=== PATIENT | female | born 2005 | race Caucasian/White ===

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

== ENCOUNTER → 2023-05-23 | Outpatient (CLI) | payer OTHER ==
--- NOTE | 2023-05-23 08:34 | US ---
EXAMINATION TYPE: US gallbladder DATE OF EXAM: 05/23/2023 COMPARISON: NONE CLINICAL INDICATION: Female, 18 years old with history of R10.84 GEN ABDOMINAL PAIN; Pt states genera lized ABD pain TECHNIQUE: Multiple sonographic images of the right upper quadrant are obtained. FINDINGS: EXAM MEASUREMENTS: Liver Length: 13.5 cm Gallbladder Wall: 0.2 cm CBD: 0.3 cm Right Kidney: 9.7 x 3.7 x 4.9 cm RESIDENT ADVISOR NOTES: Pancreas: wnl Liver: wnl Gallbladder: wnl Evidence for sonographic Mae's sign: No CBD: wnl Right Kidney: wnl, lower pole gassed out No abnormality visualized to account for pt's symptoms IMPRESSION: No evidence for acute process.
== END | disposition home or self-care (01) ==
LOC: RADUSWWP 07:36
PROVIDERS: ATTEND Family Medicine
DX: R10.84 Generalized abdominal pain (principal)
CPT/HCPCS: 76705